=== PATIENT | female | born 1985 | race Caucasian/White ===

== ENCOUNTER 2023-04-12 14:22 | Emergency (ER) | payer BC ==
--- OUTSIDE RECORDS SUMMARY | 2023-04-12 14:25 | XMS REPORT | Continuity of Care Document ---
:1985 Author Organization [facility] t Address [address] [place] [address] Care Team Providers Name Role Phone PCP, PATIENT DOES NOT HAVE A Primary Care Physician Unavaila ble Kaylee Brito Attending Clinician Unavailable GRISEL LAZO Attending Clinician Unavailable LAB90 Attending Clinician Unavailable LOBO, BILL Attending Clinician Unavailable ONLY, [facility] HEM/ONC NURSE Attending Clinician Unavailable Grisel Lazo DO Attending Clinician Divya Arguello RN Attending Clinician Unavailable Only, Ang Db Test Attending Clinician Unavailable Rita Gonzalez MD Attending Clinician RITA GONZALEZ Attending Clinician Unavailable Doctor Unassigned, [place] Attending Clinician Unavailable Dian Melo MD Attending Clinician DIAN MELO Attending Clinician Unavailable Kaylee Brito Admitting Clinician Unavailable Payers Payer Name Policy Type Policy Number Effective Date Expiration Date S edgardo BCBS 2 [id number] 2022 00:00:00 Problems Condition Condition Condition Status Onset Resolution Last Treating Co mments Source Name Details Category Date Date Treatment Clinician Date Right Right Disease Active Miroslava elbow elbow 3-24 Seybold tendonitis tendonitis 00:00: - 00 Externa l Prediabete Prediabete Disease Active Overview : Miroslava tang s 8-21 Formattin Seybold 00:00: g of this - note Externa might be l different from the original. Lab 01/2022 A1c 5.9 Well adult Well adult Disease Active K chapincito exam exam 8 Seybold 00:00: - 00 Externa l History of History of Disease Active Pieter beckham kidney kidney 8 Seybold stones stones 00:00: - 00 Externa l Iron Iron Disease Active Miroslava deficiency deficiency 8- Se ybold anemia anemia 00:00: - secondary secondary 00 Exte rna to to l inadequate inadequate dietary dietary iron iron intake intake Seasonal Seasonal Disease Active Kelse y allergic allergic 8 Seybol d rhinitis rhinitis 00:00: - due to due to 00 Externa pollen pollen l Vitamin Vitamin Disease Active Miroslava B12 B12 8 Seybold deficiency deficiency 00:00: - 00 Externa l Vitamin D Vitamin D Disease Active Aiden sey deficiency deficiency 8- Se ybold 00:00: - 00 Externa l Family Family Disease Active Miroslava history of history of 8 Se ybold breast breast 00:00: - cancer cancer 00 Externa l Other Other Disease Active Miroslava fatigue fatigue 8 Seybold 00:00: - 00 Externa l Allergies, Adverse Reactions, Alerts Allergy Allergy Status Severity Reaction(s) Onset Inactive Treating Comm ents Source Name Type Date Date Clinician No Known DA Active [facility] All[facility]ie 2-17 [facility] [place] NO KNOWN Drug Active Univers ALLERGIE Class ity of S [facility] Social History Social Habit Start Date Stop Date Quantity Comments Source History MARTÍNOH Miroslava Mckee ld - Alcohol Frequency Externa l History SDOH Miroslava Mckee ld - Alcohol Std External Drinks History SDOH Miroslava Mckee ld - Alcohol Binge External Exposure to Not sure [facility]-CoV-2 [place] [facility] (event) Branch Alcohol intake 2022-09-23 2022-09-23 .14 /d Miroslava barber - 00:00:00 00:00:00 External Tobacco use and 2022-02-18 2022-02-18 Smokeless tobacco Ke joon Fortune - exposure 00:00:00 00:00:00 non-user External Alcohol Comment 2022-02-18 2022-02-18 rarely Miroslava sorto - 00:00:00 00:00:00 External Education 2022-02-18 2022-02-18 18 Miroslava Fortune - 00:00:00 00:00:00 External Sex Ass[birth year] At [birth year] Miroslava sorto - 00:00:00 00:00:00 External Smoking Status Start Date Stop Date Source Never smoked tobacco Miroslava Callahan old - External Unknown if ever smoked [facility] Medications Ordered Filled Start Stop Current Ordering Indication Dosage Frequency Signature Comments Components Source Medication Medication Date Date Medication? Clinician (SIG) Name Name Cholecalcif Yes 1{capsu Take 1 K elsey jean claude 125 3-24 le} capsule by Seybo ld MCG (5000 08:26: mouth - [place]) oral 07 daily Externa Capsule l Cetirizine Yes 10mg Take 10 mg K elsey 10 MG oral 3-24 by mouth Seybo ld Tablet 08:26: daily - 07 Externa l Lactobacill 0 Yes 1{each} Take 1 K elsey us 3-24 each by Seybold (Probiotic 08:26: mouth - Acidophilus 07 daily Externa ) oral l Capsule Cyanocobala 2022- No 1000ug Take 1,000 Miroslava min 3-24 03-24 mcg by Seybold (Vitamin 07:49: 00:00 mouth - B-12) 1000 39 :00 daily Externa MCG oral l Tablet methylPREDN 2019-0 Yes [id number] 84mg Take 21 Univers ISolone 8-20 tablets by ity of (MEDROL, 00:00: mouth [place] CHRISTIE,) 4 mg 00 SEE-INSTRU Med ical tablets MOIONS. Branch follow package directions methylPREDN 2020-0 Yes [id number] 84mg Take 21 Univers ISolone 8-20 tablets by ity of (MEDROL, 00:00: mouth [place] CHRISTIE,) 4 mg 00 SEE-INSTRU Med ical tablets CTIONS. Branch follow package directions methylPREDN 2020-0 Yes [id number] 84mg Take 21 Univers ISolone 8-20 tablets by ity of (MEDROL, 00:00: mouth [place] CHRISTIE,) 4 mg 00 SEE-INSTRU Med ical tablets CTIONS. Branch follow package directions methylPREDN 2020-0 Yes [id number] 84mg Take 21 Univers ISolone 8-20 tablets by ity of (MEDROL, 00:00: mouth [place] CHRISTIE,) 4 mg 00 SEE-INSTRU Med ical tablets CTIONS. Branch follow package directions methylPREDN 2020-0 Yes [id number] 84mg Take 21 Univers ISolone 8-20 tablets by ity of (MEDROL, 00:00: mouth [place] CHRISTIE,) 4 mg 00 SEE-INSTRU Med ical tablets CTIONS. Branch follow package directions methylPREDN 2020-0 Yes [id number] 84mg Take 21 Univers ISolone 8-20 tablets by ity of (MEDROL, 00:00: mouth [place] CHRISTIE,) 4 mg 00 SEE-INSTRU Med ical tablets CTIONS. Branch follow package directions methylPREDN 2020-0 Yes [id number] 84mg Take 21 Univers ISolone 8-20 tablets by ity of (MEDROL, 00:00: mouth [place] CHRISTIE,) 4 mg 00 SEE-INSTRU Med ical tablets CTIONS. Branch follow package directions methylPREDN 2020-0 Yes [id number] 84mg Take 21 Univers ISolone 8-20 tablets by ity of (MEDROL, 00:00: mouth [place] CHRISTIE,) 4 mg 00 SEE-INSTRU Med ical tablets CTIONS. Branch follow package directions methylPREDN 2020-0 Yes [id number] 84mg Take 21 Univers ISolone 8-20 tablets by ity of (MEDROL, 00:00: mouth [place] CHRISTIE,) 4 mg 00 SEE-INSTRU Med ical tablets CTIONS. Branch follow package directions methylPREDN 2020-0 Yes [id number] 84mg Take 21 Univers ISolone 8-20 tablets by ity of (MEDROL, 00:00: mouth [place] CHRISTIE,) 4 mg 00 SEE-INSTRU Med ical tablets CTIONS. Branch follow package directions methylPREDN 2020-0 Yes [id number] 84mg Take 21 Univers ISolone 8-20 tablets by ity of (MEDROL, 00:00: mouth [place] CHRISTIE,) 4 mg 00 SEE-INSTRU Med ical tablets CTIONS. Branch follow package directions Vital Signs Vital Name Observation Time Observation Value Comments Source BMI 2022-09-23 13:25:00 32.63 kg/m2 Miroslava greerbold - External Oxygen saturation in 2022-09-23 13:25:00 100 /min Miroslava Fortune - Arterial blood by External Pulse oximetry Systolic blood 2022-09-23 13:25:00 105 mm[Hg] Miroslava Phelpsybold - pressure External Diastolic blood 2022-09-23 13:25:00 56 mm[Hg] Enmanuel avila Seybold - pressure External Heart rate 2022-09-23 13:25:00 72 /min Miroslava greerbold - External Body temperature 2022-09-23 13:25:00 36.72 Tammy Mere greer Seybold - External Respiratory rate 2022-09-23 13:25:00 14 /min Mere greer Seybold - External Body height 2022-09-23 13:25:00 157.5 cm Miroslava greerbold - External Body weight 2022-09-23 13:25:00 80.922 kg Miroslava greerbold - External Systolic blood 2020-04-20 19:18:00 123 mm[Hg] [facility] Diastolic blood 2020-04-20 19:18:00 82 mm[Hg] [facility] Heart rate 2020-04-20 19:18:00 55 /min [facility] Body weight 2020-04-20 19:18:00 77.111 kg [facility] BMI 2020-04-20 19:18:00 31.09 kg/m2 [facility] Systolic blood 2020-02-20 18:23:00 135 mm[Hg] Univer [facility]ity of pressure [facility] Diastolic blood 2020-02-20 18:23:00 82 mm[Hg] [facility] Heart rate 2020-02-20 18:23:00 74 /min [facility] Body height 2020-02-20 18:23:00 157.5 cm [facility] Body weight 2020-02-20 18:23:00 77.111 kg [facility] BMI 2020-02-20 18:23:00 31.09 kg/m2 [facility] Procedures Procedure Date / Time Performed Performing Clinician Elliottc e ASSIGNMENT OF BENEFITS 2021-07-19 18:11:04 Doctor Unassigned, No [facility] DSU PRE-OP 2020-04-20 05:01:00 Doctor Unassigned, No [facility] NOTICE OF PRIVACY 2020-02-20 18:15:06 Doctor Unassigned, No [facility] CONSENT TO CONTACT FOR 2020-02-20 18:14:48 Doctor Unassigned, No [facility] VOLUNTARY RESEARCH [facility] CONSENT/REFUSAL FOR 2020-02-20 18:14:31 Doctor Unassigned, No [facility] DIAGNOSIS AND [facility] TREATMENT ASSIGNMENT OF BENEFITS 2020-02-20 18:14:14 Doctor Unassigned, No [facility] [id number] 2019-10-08 00:00:00 [facility] [id number] 2019-10-08 00:00:00 [facility] [id number] 2019-10-08 00:00:00 [facility] [id number] 2019-10-08 00:00:00 [facility] Encounters Start End Encounter Admission Attending Care Care Encounter Source Date/Time Date/Time Type Type Clinicians Facility Department ID 2019-10-07 Inpatient NADER Buenrostro LD [id number] [facility] 21:55:00 Kaylee 39 [facility] 2019-08-19 Inpatient KANCHAN Brito JOSHUA [id number] [facility] 15:50:00 [facility]lee [facility] 2022-09-23 2022-09-23 Outpatient MIROSLAVA LAZO [id number] Miroslava 08:30:00 08:30:00 GRISEL Callahanol nohelia 2022-09-21 2022-09-21 Outpatient LAB90 MIROSLAVA GRIFFIN [id number] Miroslava 08:05:00 08:05:00 Edgar pozo 2022-04-01 2022-04-01 Outpatient LOBOMIROSLAVA [id number] Mirosl[place] 13:00:00 13:00:00 BILL Seybol d 2022-03-20 2022-03-20 Outpatient PREZAS, MIROSLAVA GRIFFIN [id number] Miroslava 00:00:00 00:00:00 GRISEL Seybol d 2022-03-17 2022-03-17 Outpatient PREZAS, MIROSLAVA GRIFFIN [id number] Mi[place] 08:30:00 08:30:00 GRISEL Seybol d 2022-03-02 2022-03-02 Outpatient ONLY, [facility] MIROSLAVA GRIFFIN [id number] Miroslava 00:00:00 00:00:00 Seybol d 2022-02-23 2022-02-23 Outpatient PREZAS, MIROSLAVA GRIFFIN [id number] Miroslava 00:00:00 00:00:00 GRISEL Seybol d 2022-02-22 2022-02-22 Outpatient PREZAS, MIROSLAVA GRIFFIN [id number] Miroslava 00:00:00 00:00:00 GRISEL Seybol d 2022-02-21 2022-02-21 Outpatient PREZAS, MIROSLAVA GRIFFIN [id number] Miroslava 00:00:00 00:00:00 GRISEL Seybol d 2022-02-20 2022-02-20 Outpatient PREZAS, MIROSLAVA GRIFFIN [id number] Miroslava 00:00:00 00:00:00 GRISEL Seybol d 2022-02-18 2022-02-18 Outpatient LAB90 MIROSLAVA GRIFFIN [id number] Mi[place] 09:40:00 09:40:00 Seybol d 2022-02-18 2022-02-18 Office PrezaJuan tang [id number] Miroslava 08:45:00 09:15:00 Visit Grisel Asad 350.1.13.13 Se moniold 1.2.7.2.686 [id number] 2021-07-20 2021-07-20 Letter YAZMIN Arguello 1.2.840.114 [id number] Univers 00:00:00 00:00:00 (Out) Divya GONZALEZ 350.1.13.10 [facility] 4.2.7.2.686 Wisam as [id number] [facility] 019 Nerinx 2021-07-19 2021-07-19 Laboratory Only, Ang Db Test [facility] 1.2.8 40.114 [id number] Univers 12:15:00 12:30:00 Only Rita Gonzalez 350.1.13.10 ity of [place] 4.2.7.2.686 Wisam as VICTORIA?BLEA [phone] Wi dorothea [address] MEDICAL OFFICE BUILDING 2021-07-19 2021-07-19 Outpatient R HEIDI [facility] [id number] Univers 12:15:00 12:23:54 RITA nielson [facility] 2021-07-19 2021-07-19 Orders Doctor YAZMIN 1.2.840.114 [id number] Univers 00:00:00 00:00:00 Only Unassigned, CARLOS 350.1.13.10 ity of [place] [facility] 4.2.7.2.686 Wisam as [phone] [address] 2020-05-05 2020-05-05 Telephone [facility] 1.2.840.114 [id number] Univers 00:00:00 00:00:00 Dian L Jobzippers 350.1.13.10 it y of Surgical 4.2.7.2.686 Wisam as Specialti [phone] Wi dorothea [address] [facility] 2020-04-20 2020-04-21 [facility] 1.2.255.642 [id number] Univers 14:06:21 14:13:11 Visit Dian Flores [employer]zippers 350.1.13.10 it y of Surgical 4.2.7.2.686 Wisam as Specialti [phone] Wi dical es [address] [facility] 2020-04-20 2020-04-20 [facility] [id number] Univers 15:45:00 15:45:00 DIAN nielson [facility] 2020-04-20 2020-04-20 Orders Doctor YAZMIN 1.2.840.114 [id number] Univers 00:00:00 00:00:00 Only Unassigned, CARLOS 350.1.13.10 ity of [place] [facility] 4.2.7.2.686 Wisam as [phone] [address] 2020-02-20 2020-02-20 [facility] 1.2.916.171 [id number] Univers 13:15:39 13:30:36 Visit Dian [facility] 350.1.13.10 it y of Surgical 4.2.7.2.686 Wisam as Specialti [phone] Wi dical es [address] [facility] 2020-02-20 2020-02-20 [facility] [id number] Univers 13:15:00 13:15:00 DIAN ity [facility] 2020-02-20 2020-02-20 Orders Doctor YAZMIN 1.2.840.114 [id number] Univers 00:00:00 00:00:00 Only Unassigned, CARLOS 350.1.13.10 ity of [place] [facility] 4.2.7.2.686 Wisam as [phone] [address] Results Test Description Test Time Test Comments Results Result Comments Source CONSENT TO CONTACT FOR VOLUNTARY RESEARCH 2020-02-20 18:14:4 8 Test Item Value Reference Range Interpretation Comme nts Consent To Contact For Voluntary Research (test code = 4947) Yes [facility] [id number] 00:01:00 Test Item Value Reference Range Interpretation Comments AG HEPATITIS B SURFACE (test code NONREACTIVE NONREACTIVE = HBSAG) IS CONSENT FORM SIGNED FOR HIV TESTING? YAB HEPATITIS C [id number] 00:01:00 Test Item Value Reference Range Interpretation Comments AB HEPATITIS C (test code = NONREACTIVE NONREACTIVE HCVAB) SIGNAL TO CUTOFF (test code = 0.19 <0.80 N CUTOFF) IS CONSENT FORM SIGNED FOR HIV TESTING? YAB [id number] 00:01:00 Test Item Value Reference Range Interpretation Comments AB TREPONEMA (test code = TREPAB) NONREACTIVE NONREACTIVE IS CONSENT FORM SIGNED FOR HIV TESTING? YAB HIV 1 00:01:00 Test Item Value Reference Range Interpretation Comments AB HIV 1 2 (test NONREACTIVE NONREACTIVE Done by Sie [facility] code = [id number]) 4th Gen HIV Ag/Ab Combo Screen IS CONSENT FORM SIGNED FOR HIV TESTING? YCBC W/AUTO [id number] 22:55:00 Test Item Value Reference Range Interpretation Comments WHITE BLOOD CELL (test code = WBC) 9.0 K/mm3 6.6-12.1 N RED BLOOD CELL (test code = RBC) 4.42 M/mm3 3.45-5.01 N HEMOGLOBIN (test code = HGB) 12.7 g/dL 10.7-13.9 N HEMATOCRIT (test code = HCT) 38.8 % 32.1-42.1 N MEAN CELL VOLUME (test code = MCV) 88 fL 84.1-94.8 N MEAN CELL HGB (test code = MCH) 28.7 pg 27-35 N MEAN CELL HGB CONCETRATION (test 32.7 gm/dL 32.2-34.1 N code = MCHC) RED CELL DISTRIBUTION WIDTH (test 14.3 % 12.4-16.5 N code = RDW) PLATELET COUNT (test code = PLT) 148 K/mm3 133-385 N MEAN PLATELET VOLUME (test code = 11.9 fl 9.1-12.7 N MPV) NEUTROPHIL % (test code = NT%) 68.3 % 56.5-79.4 N LYMPHOCYTE % (test code = LY%) 24.2 % 14.3-34.3 N MONOCYTE % (test code = MO%) 5.8 % 5.1-10.4 N EOSINOPHIL % (test code = EO%) 0.9 % 0.1-3.0 N BASOPHIL % (test code = BA%) 0.2 % 0.1-1.0 N NEUTROPHIL # (test code = NT#) 6.2 K/mm3 LYMPHOCYTE # (test code = LY#) 2.2 K/mm3 MONOCYTE # (test code = MO#) 0.5 K/mm3 EOSINOPHIL # (test code = EO#) 0.08 K/mm3 BASOPHIL # (test code = BA#) 0.0 K/mm3 RBC MORPHOLOGY REQUIRED (test code NORMAL NORMAL = RBCM) PLATELET MORPHOLOGY REQUIRED (test NORMAL NORMAL code = PLTMR) - US PREG AFTER [id number] 10:36:00 Patient Name: SUZI ISSA Unit No: [id number] EXAMS: CPT CODE: [id number] US PREG AFTER [address] [facility] [place] [facility] [address] [place], [place] [address] OBSTETRICAL ULTRASOUND REPORT Pat. Name: SUZI ISSA Pat. No:[id number] Study Date: 05/24/2019 8:21am , Age: 11 1985, 34 Pregnancies: 2, Para 1 LMP: Unknown GA by US: 19w0d GA Selected: 19w4d (From Known E) WALTER: 10/14/2019 Referring MD: KAYLEE BRITO [employer] Operator: Carolin Rico RDMS CPT4: [id number] Admitting MD: KAYELE BRITO Hist/Ind: ANATOMY SCAN 1 MEASUREMENTS AGE GROWTH EVALUATION Measurement GA Range Srce %for GA Ratios ----- ---- ------- BPD 4.2 cm 18w4d (19x7d-27u7b) Hadl BPD 6% FL/BPD 0.73 HC 16.4 cm 19w0d (17w3d- 20w4d) Hadl HC 34% FL/AC 0.23 APD 4.3 cm APD HC/AC 1.21 (1.06 - 1.25) TAD 4.3 cm TAD CI 0.75 (0.70 - 0.86) AC 13.5 cm 18w5d (72q6o-00i4u) Hadl AC 29% FL 3.1 cm 19w1d (76p2r-81q5t) Hadl FL 40% HL 2.8 cm 19w1d (73u1q-39t5m) Michele HL 44% GA for sonogram 19w0d (91p1e-20o9y) Weight Estimate: based on (BPD,HC,AC,FL) Hadlock Weight: 279 gm (238-319) Hadlock : 0lbs, 9oz Cervical Length: 4.5 cm Heart Rate: 148 bpm CLINICAL SUMMARY Type of Gestation: Allen Intrauterine in variable presentation. size is appropriate for gestational age. growth: Consistent with normal growth motion and organs seen: somatic activity observed body and limb movements seen Four chamber heart observed Left ventricular outflow tract (LVOT) seen Right ventricular outflow tract (RVOT) seen Regular cardiac rhythm observed Normal intracranial anatomy seen Umbilical cord insertion infetus seen stomach, Renal Fossa, Bladder and Spine seen Three vessel umbilical cord noted abnormalities observed: 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 Placental location: Anterior Placental maturity : Grade 1 There is no evidence of placenta previa. Amniotic fluid volume is normal. Uterus and adnexa: No significant abnormality is seen. FINDINGS CONVEYED BYPHONE TO DR BRITO @10:25AM 05/24/2019 SUBSPECIALITY EVALUATION RECOMMENDED Thank you for allowing us to participate in the care of this patient. Curtis Contreras M.D. Electronic Signature 05/24/2019 10:36am at 1036 Reported and signed by: Celine Contreras MD CC: Kaylee Brito MD Technologist: Carolin Rico RDMS Probe: Trnscrbd D/ (1036) t.[email or web address].[email or web address] Orig Print D/T: S: 05/24/2019 (1037) [facility] [place] [facility] NAME: SUZI ISSA Radiology Department PHYS: [facility]IL[facility]ans[facility]lee Chacon MD [address] : 1985 AGE: 34 SEX: F [place] [address] LOC: [facility] PHONE #: [phone] EXAM DATE: 05/24/2019 STATUS: REG CLI FAX #: [phone] RAD NO: Page 2 Signed Report Patient Name: SUZI ISSA Unit No: [id number] EXAMS: CPT CODE: [id number] US PREG AFTER 1ST TRI 47481 (Continued) [facility] [place] [facility] NAME: SUZI ISSA Radiology Department PHYS: ALEXHansKaylee Chacon MD [address] : 1985 AGE: 34 SEX: F [place] [address] LOC: [facility] PHONE #: [phone] EXAM DATE: 05/24/2019 STATUS: REG CLI FAX #: [phone] RAD NO: Page 3 Signed Report
[2023-04-12] MEDS ORDERED: NA CHLORIDE 0.9% 1,000 ML ONE (15:23)
[2023-04-12] MEDS ORDERED: KETOROLAC 30 MG/ML INJ ONE (15:23)
[2023-04-12 15:24] LABS: Absolute Lymphocytes (CBC) 2.3 K/uL (0.7-4.9); Hematocrit 38.8 % (36.0-45.0); Lymphocytes % 27.8 % (15.3-44.8); MCV 83.1 fL (80-100); MPV 10.4 fL (7.6-11.3); Platelets 170 thou/uL (152-406); RBC Red Blood Cell Count 4.67 M/uL (3.86-4.86)
--- NOTE | 2023-04-12 15:27 | RAD REPORT ---
EXAM DESCRIPTION: CT - Abdomen Pelvis Wo Contrast - 04/12/2023 3:19 pm CLINICAL HISTORY: Abdominal pain. L flank pain COMPARISON: No comparisons TECHNIQUE: CT imaging of the abdomen and pelvis was performed without contrast. Solid organ, bowel a nd vascular assessment is limited due to lack of IV and oral contrast. All CT scans are performed using dose optimization technique as appropriate and may include automated exposure control or mA/KV adjustment according to patient size. FINDINGS: The lower lung hewitt are clear. The liver, spleen, pancreas, adrenal glands are within normal limits for a limited non-contrast exami nation. 4 mm calculus is present proximal left ureter resulting in mild left hydronephrosis and hydroureter. Small punctate calculi are present in the calices of both kidneys also, largest inferiorly on the rig ht measuring 5 mm. No right-sided hydronephrosis seen. No bowel obstruction, free air, free fluid or abscess. The appendix is normal. Pessary device noted. The osseous structures are within normal limits. IMPRESSION: 4 mm stone is present proximal left ureter resulting in mild left hydronephrosis. Additional punctate bilateral caliceal nephrolithiasis. A limited non-contrast examination was performed as detailed.
[2023-04-12 15:36] LABS: Albumin 3.8 g/dL (3.4-5.0); Bilirubin Total 0.2 mg/dL (0.2-1.0); Potassium 3.9 mEq/L (3.5-5.1); Protein, Total 7.2 g/dL (6.4-8.2)
[2023-04-12 15:54] LABS: Specific Gravity 1.022 (1.005-1.030); Urine Bacteria <20 /HPF (<20); Urine Bilirubin NEGATIVE (Negative); Urine Blood 3+ (OVER) (Negative); Urine Clarity Extremely Turbid (Clear); Urine Color Light-Yellow (Yellow); Urine Glucose NEGATIVE (Negative); Urine Mucus Slight /HPF (None Seen); Urine Protein TRACE (Negative); Urine RBC >50 /HPF (None Seen); Urine Urobilinogen Normal (Normal); Urine pH 7.5 (5.0-7.0)
--- NOTE | 2023-04-12 16:26 | ER ---
Nurse's Notes [facility] Name: Radha Hamilton Age: 37 yrs Sex: Female : 1985 Arrival Date: 04/12/2023 Time: 14:22 Bed 15 Private MD: Diagnosis: Kidney Stone;Left Flank pain;Hematuria, unspecified Presentation: 04/12 14:36 Chief complaint: Patient states: Kidney stone pain. Coronavirus screen: Vaccine status: ll1 Patient reports receiving the 2nd dose of the covid vaccine. Client denies travel out of the [place] in the last 14 days. At this time, the client does not indicate any symptoms associated with coronavirus-19. Ebola Screen: Patient denies travel to an Ebola-affected area in the 21 days before illness onset. Initial Sepsis Screen: Does the patient meet any 2 criteria? No. Patient's initial sepsis screen is negative. Does the patient have a suspected source of infection? Yes: Dysuria/Frequency/Urgency/UTI. Risk Assessment: Do you want to hurt yourself or someone else? Patient reports no desire to harm self or others. Onset of symptoms was April 11, 2023. 14:36 Method Of Arrival: Ambulatory ll1 14:36 Acuity: OZIEL 3 ll1 Historical: - Allergies: 14:35 Codeine; ll1 - PMHx: 14:35 Kidney stone; ll1 - Immunization history:: Adult Immunizations up to date. - Social history:: Smoking status: Patient reports the use of cigarette tobacco products, smokes one-half pack cigarettes per day. Screenin:14 [facility] ED Fall Risk Assessment (Adult) History of falling in the last 3 months, db including since admission No falls in past 3 months (0 pts) Confusion or Disorientation No (0 pts) Intoxicated or Sedated No (0 pts) Impaired Gait No (0 pts) Mobility Assist Device Used No (0 pt) Altered Elimination No (0 pt) Score/Fall Risk Level 0 - 2 = Low Risk Oriented to surroundings, Maintained a safe environment. Abuse screen: Denies threats or abuse. Denies injuries from another. Nutritional screening: No deficits noted. Tuberculosis screening: No symptoms or risk factors identified. Assessment: 15:12 Reassessment: Patient appears in no apparent distress at this time. Patient and/or db family updated on plan of care and expected duration. Pain level reassessed. Patient is alert, oriented x 3, equal unlabored respirations, skin warm/dry/pink. General: Appears in no apparent distress. comfortable, Behavior is calm, cooperative. Neuro: Level of Consciousness is awake, alert, obeys commands, Oriented to person, place, time, situation. Respiratory: Airway is patent Respiratory effort is even, unlabored, Respiratory pattern is regular, symmetrical. GI: Bowel sounds present X 4 quads. Abd is soft and non tender. 15:14 Reassessment: PATIENT TO CT VIA WHEELCHAIR. db 16:24 Reassessment: Patient appears in no apparent distress at this time. Patient and/or db family updated on plan of care and expected duration. Pain level reassessed. Patient is alert, oriented x 3, equal unlabored respirations, skin warm/dry/pink. Patient states feeling better. Patient states symptoms have improved. Pain:. Vital Signs: 14:36 BP 150 / 88; Pulse 71; Resp 17; Pulse Ox 100% on R/A; Weight 80.74 kg; Height 5 ft. 2 ll1 in. ; Pain 7/10; 15:30 BP 144 / 86; Pulse 73; Resp 16; Pulse Ox 99% on R/A; db 16:00 BP 134 / 83; Pulse 81; Resp 16; Pulse Ox 100% on R/A; db 14:36 Body Mass Index 32.56 (80.74 kg, 157.48 cm) ll1 14:36 Pain Scale: Adult ll1 ED Course: 14:24 Patient arrived in ED. rg4 14:27 Home Simmons DO is Attending Physician. ms3 14:35 Arm band placed on Patient placed in an exam room, on a stretcher. ll1 14:38 Triage completed. ll1 15:05 Elise Sandhu, RN is Primary Nurse. db 15:13 CBC with Diff Sent. bc6 15:13 CMP Sent. bc6 15:14 Patient has correct armband on for positive identification. Bed in low position. Call db light in reach. Side rails up X 1. Pulse ox on. NIBP on. 15:14 Inserted saline lock: 20 gauge in right antecubital area, using aseptic technique. bc6 Blood collected. 15:21 CT Abd/Pelvis - Without Contrast In Process Unspecified. EDMS 16:25 Provided Education on: FOLLOW UP CARE. db 16:44 No provider procedures requiring assistance completed. IV discontinued, intact, db bleeding controlled, No redness/swelling at site. Administered Medications: 15:13 Drug: NS 0.9% IV 1000 ml IV at 1 bolus Per protocol; 1000 mL bolus Route: IV; Rate: 1 db bolus; Site: right antecubital; 16:43 Follow up: Response: No adverse reaction; IV Status: Completed infusion; IV Intake: db 1000ml 15:13 Drug: TORadol - Ketorolac IVP 15 mg IVP once Route: IVP; Site: right antecubital; db 16:44 Follow up: Response: No adverse reaction db Medication: 15:14 VIS not applicable for this client. db Intake: 16:43 IV: 1000ml; Total: 1000ml. db Outcome: 16:26 Discharge ordered by MD. ms3 16:44 Discharged to home ambulatory, with family, db 16:44 Condition: stable 16:44 Discharge instructions given to patient, Instructed on discharge instructions, follow up and referral plans. Prescriptions given X 2, 16:45 Patient left the ED. db Signatures: Dispatcher [employer] EDMS Paola Benton rg4 Daily Smith, RN RN ll1 Home Simmons DO DO ms3 Elise Sandhu, RN RN db Maricel [email or web address]
--- NOTE | 2023-04-12 16:26 | EDPHYS ---
Physician Documentation [facility] Name: Radha Hamilton Age: 37 yrs Sex: Female : 1985 Arrival Date: 04/12/2023 Time: 14:22 Bed 15 Private MD: ED Physician Home Simmons HPI: 04/12 15:33 This 37 yrs old Female presents to ER via Ambulatory with complaints of Possible Kidney ms3 Stone. 15:33 37-year-old female with past medical history of kidney stones presents for left flank ms3 pain that began yesterday. Patient states the pain is 7/10. Patient states rubbing the area and certain positions makes the pain better. Patient denies inciting factors. Patient endorses urinary frequency. Patient denies dysuria, hematuria, fevers, chills, vomiting.. Historical: - Allergies: 14:35 Codeine; ll1 - PMHx: 14:35 Kidney stone; ll1 - Immunization history:: Adult Immunizations up to date. - Social history:: Smoking status: Patient reports the use of cigarette tobacco products, smokes one-half pack cigarettes per day. ROS: 15:33 Constitutional: Negative for fever, and chills. Neck: Negative for injury, pain, and ms3 swelling, Cardiovascular: Negative for chest pain, and palpitations. Respiratory: Negative for shortness of breath, cough, wheezing, and pleuritic chest pain, 15:33 MS/Extremity: Negative for injury and deformity, Skin: Negative for injury, rash, and discoloration, 15:33 Abdomen/GI: Positive for Left flank pain, 15:33 All other systems are negative, Exam: 15:33 Constitutional: This is a well developed, well nourished patient who is awake, alert, ms3 and in no acute distress. Head/Face: Normocephalic, atraumatic. Neck: Trachea midline, no cervical lymphadenopathy. Supple, full range of motion without nuchal rigidity, or vertebral point tenderness. No Meningismus. Chest/axilla: Normal chest wall appearance and motion. Nontender with no deformity. Cardiovascular: Regular rate and rhythm with a normal S1 and S2. No gallops, murmurs, or rubs. Normal PMI, no JVD. No pulse deficits. Respiratory: Lungs have equal breath sounds bilaterally, clear to auscultation and percussion. No rales, rhonchi or wheezes noted. No increased work of breathing, no retractions or nasal flaring. Abdomen/GI: Soft, non-tender, with normal bowel sounds. No distension or tympany. No guarding or rebound. No evidence of tenderness throughout. Back: No spinal tenderness. No costovertebral tenderness. Full range of motion. Skin: Warm, dry with normal turgor. Normal color with no rashes, no lesions, and no evidence of cellulitis. MS/ Extremity: Pulses equal, no cyanosis. Neurovascular intact. Full, normal range of motion. Vital Signs: 14:36 BP 150 / 88; Pulse 71; Resp 17; Pulse Ox 100% on R/A; Weight 80.74 kg; Height 5 ft. 2 ll1 in. ; Pain 7/10; 15:30 BP 144 / 86; Pulse 73; Resp 16; Pulse Ox 99% on R/A; db 16:00 BP 134 / 83; Pulse 81; Resp 16; Pulse Ox 100% on R/A; db 14:36 Body Mass Index 32.56 (80.74 kg, 157.48 cm) ll1 14:36 Pain Scale: Adult ll1 MDM: 14:59 Patient medically screened. ms3 15:33 Differential diagnosis: nephrolithiasis, pyelonephritis, UTI. ms3 16:35 Data reviewed: vital signs, nurses notes, lab test result(s), CBC, electrolytes, ms3 urinalysis, radiologic studies, CT scan, and as a result, I will. I considered the following discharge prescriptions or medication management in the emergency department Medications were administered in the Emergency Department. See MAR. Counseling: I had a detailed discussion with the patient and/or guardian regarding the historical points, exam findings, and any diagnostic results supporting the discharge/admit diagnosis, lab results, radiology results, the need for outpatient follow up, to return to the emergency department if symptoms worsen or persist or if there are any questions or concerns that arise at home. Response to treatment: the patient's symptoms have markedly improved after treatment, and as a result, I will discharge patient. Special discussion: I discussed with the patient/guardian in detail that at this point there is no indication for admission to the hospital. It is understood, however, that if the symptoms persist or worsen the patient needs to return immediately for re-evaluation. ED course: Discussed labs, CT scan, physical exam findings with patient. Patient to follow-up with her urologist in 2 to 3 days. On reevaluation patient states her symptoms have resolved, patient is alert and orient x4, no apparent distress, nontoxic-appearing, ambulatory in emergency department, speaking full sentences. Return precautions discussed include worsening symptoms, or any other concerns. 04/12 14:59 Order name: CBC with Diff; Complete Time: 15:33 ms3 04/12 14:59 Order name: CMP; Complete Time: 16:02 ms3 04/12 14:59 Order name: Lipase; Complete Time: 16:02 ms3 04/12 14:59 Order name: Urinalysis w/ reflexes; Complete Time: 16:02 ms3 04/12 14:59 Order name: CT Abd/Pelvis - Without Contrast; Complete Time: 15:33 ms3 04/12 14:59 Order name: IV Saline Lock; Complete Time: 15:13 ms3 04/12 14:59 Order name: Labs collected and sent; Complete Time: 15:13 ms3 Administered Medications: 15:13 Drug: NS 0.9% IV 1000 ml IV at 1 bolus Per protocol; 1000 mL bolus Route: IV; Rate: 1 db bolus; Site: right antecubital; 16:43 Follow up: Response: No adverse reaction; IV Status: Completed infusion; IV Intake: db 1000ml 15:13 Drug: TORadol - Ketorolac IVP 15 mg IVP once Route: IVP; Site: right antecubital; db 16:44 Follow up: Response: No adverse reaction db Disposition Summary: 04/12/23 16:26 Discharge Ordered Notes: Location: Home ms3 Condition: Stable ms3 Diagnosis - Kidney Stone ms3 - Left Flank pain ms3 - Hematuria, unspecified ms3 Followup: ms3 - With: Private Physician - When: 2 - 3 days - Reason: Recheck today's complaints Discharge Instructions: - Discharge Summary Sheet ms3 - Kidney Stones, [id number] ms3 Forms: - Medication Reconciliation Form ms3 - Thank You Letter ms3 - Antibiotic Education ms3 - Prescription Opioid Use ms3 - Patient Portal Instructions ms3 - Leadership Thank You Letter ms3 Prescriptions: - tamsulosin 0.4 mg Oral capsule - take 1 capsule ORAL route daily; 20 capsule; Refills: 0, Product Selection ms3 Permitted - Ibuprofen 600 mg Oral Tablet - take 1 tablet ORAL route every 6 hours As needed take with food; 30 tablet; ms3 Refills: 0, Product Selection Permitted Signatures: Dispatcher [employer] Daily Garay, RN RN ll1 Home Simmons DO DO ms3 Elise Sandhu, RN RN db
[2023-04-12 17:02] VITALS: BP 134/83; O2SAT 100
== END 2023-04-12 16:45 | disposition home or self-care (01) ==
LOC: ER 14:22
DX: N20.0 Calculus of kidney (principal); R31.9 Hematuria, unspecified; Z87.442 Personal history of urinary calculi; F17.210 Nicotine dependence, cigarettes, uncomplicated; Z88.5 Allergy status to narcotic agent
CPT/HCPCS: 85025; 81001; 36415; 83690; 80053; 74176; J7030